=== PATIENT | female | born 1945 | race Caucasian/White ===

== ENCOUNTER 2017-10-30 06:00 | Inpatient (IN) | payer MEDICARE, OTHER ==
[2017-10-30] VITALS (65 sets, daily range): BP systolic 93–122; BP diastolic 61–79
[~2017-10-30] VITALS: Ht 160 cm; Wt 49.9 kg
[~2017-10-30 06:00] MED LIST: ALBUTEROL2.5 MG/0.5 INH; ALBUTEROL2.5 MG/3 M NEB; ASPIRIN EC81 MG PO; AZITHROMYCIN250 MG PO; COMBIVENT RESPIM4 GM IH; COZAAR25 MG PO; FUROSEMIDE20 MG PO; FUROSEMIDE40 MG PO; IPRATROPIU0.2 MG/1 M NEB; LASIX40 MG PO; LISINOPRIL10 MG PO; LISINOPRIL20 MG PO; NICODERM CQ1 EAC2 TOP; POTASSIUM CHLO20 ME1 PO; PREDNISONE20 MG PO; PROTONIX40 MG/ML PO; SPIRIVA18 MCG INH; VERAMYST10 GM
[2017-10-30] MEDS ORDERED: ETOMIDATE 2 MG/ML 10 ML INJ IV STA (06:10)
[2017-10-30] MEDS ORDERED: SUCCINYLCHOLINE 200 MG/10 ML SYR IV STA (06:10)
[2017-10-30] MEDS ORDERED: ALBUTEROL SULF 0.083% NEB SOLN 3 ML NEB NEB STA (06:10)
[2017-10-30] MEDS ORDERED: ASPIRIN 81 MG CHEW TAB PO ONE ×2 (06:15→07:00)
[2017-10-30] MEDS ORDERED: IPRATROPIUM BROMIDE 0.02% 2.5 ML NEB NEB ONE (06:15)
[2017-10-30] MEDS: PROPOFOL IV EMULSION 10MG/ML 100 ML IV PRN ×2 (06:30→22:39)
[2017-10-30 06:33] LABS: BASOPHILS # (AUTO) 0.1 (0.0-0.1); BASOPHILS % 0.4 % (0.0-1.0); EOSINOPHILS # (AUTO) 0.1 (0.0-0.4); EOSINOPHILS % 0.9 % (0.0-6.0); HEMOGLOBIN 13.5 g/dL (12.0-16.0); LYMPHOCYTES # (AUTO) 6.2 (1.0-3.2); LYMPHOCYTES % 49.1 % (18.0-39.1); MEAN CORPUSCULAR HGB CONC 31.4 g/dL (31-35); MEAN CORPUSCULAR VOLUME 98.6 fL (81-99); MONOCYTES # (AUTO) 0.8 (0.2-0.8); MONOCYTES % 5.9 % (4.4-11.3); NEUTROPHILS # (AUTO) 5.5 (2.1-6.9); NEUTROPHILS % 43.1 % (38.7-80.0); PLATELET COUNT 234 x10e3/uL (140-360); RED BLOOD COUNT 4.36 x10e6/uL (3.6-5.1); RED CELL DISTRIBUTION WIDTH 14.5 % (11.7-14.4)
--- NOTE | 2017-10-30 06:41 | Diagnostic Imaging Report ---
CHEST SINGLE (PORTABLE), 10/30/2017 6:10 AM Clinical history: Shortness of breath status post intubation Technique: CHEST SINGLE (PORTABLE) Comparison: 01/21/2017 Findings: See Impression Impression: 1. ET tube about 5 cm above the pepe. 2. Stable cardiomediastinal silhouette with tortuous and/or ectatic thoracic aorta 3. Faint right upper lung opacity could reflect early infection. Attention on follow-up. 4. Stable elevated left hemidiaphragm. No significant effusion or pneumothorax. Signed by: Dr Maritza Wagoner MD on 10/30/2017 6:37 AM
[2017-10-30] MEDS ORDERED: ROCURONIUM BROMIDE 10 MG/ML 5ML VIAL IV ONE (06:45)
[2017-10-30] MEDS ORDERED: SODIUM CHLORIDE 0.9% 1000ML 1,000 ML IV SCH ×2 (06:45→06:48)
[2017-10-30 06:53] LABS: ALBUMIN 3.4 g/dL (3.5-5.0); ALBUMIN/GLOBULIN RATIO 1.1 (0.8-2.0); ANION GAP 17.1 mmol/L (8-16); CALCIUM 8.8 mg/dL (8.4-10.2); CREATININE, SERUM 1.62 mg/dL (0.57-1.11)
[2017-10-30 06:55] LABS: POTASSIUM 5.1 mmol/L (3.5-5.1)
[2017-10-30 06:56] LABS: CLARITY,URINE CLEAR (CLEAR); COLOR,URINE YELLOW (YELLOW)
[2017-10-30 06:58] LABS: LEUKOCYTE ESTERASE ,URINE NEGATIVE (NEGATIVE); NITRITE,URINE NEGATIVE (NEGATIVE); PROTEIN,URINE DIPSTICK TRACE (NEGATIVE)
[2017-10-30 06:59] LABS: BILIRUBIN,URINE NEGATIVE (NEGATIVE); EPITHELIAL CELLS,URINE RARE /LPF; KETONES,URINE NEGATIVE (NEGATIVE); TRANSITIONAL EPI CELLS,URINE RARE; URINE UROBILINOGEN 0.2 mg/dL (0.2 - 1); WBC,URINE (MAN) 0-5 /HPF (0-5)
[2017-10-30] MEDS ORDERED: INSULIN REGULAR, HUMAN 100 UNIT/1 ML 3ML VIAL SQ ONE (07:00)
[2017-10-30] MEDS ORDERED: VANCOMYCIN HCL 1GM/NS 250 ML BAG IV SCH (07:00)
[2017-10-30] MEDS ORDERED: ACETAMINOPHEN 1000 MG/100 ML IV PRN (07:00)
[2017-10-30] MEDS ORDERED: AZITHROMYCIN 500MG/SOD CHL 0.9% 250ML BAG IV SCH (07:00)
[2017-10-30] MEDS ORDERED: CEFTRIAXONE SOD 1 GM VIAL IV SCH (07:00)
[2017-10-30] MEDS ORDERED: SODIUM CHLORIDE 0.9% 1000ML 1,000 ML IV ONE (07:04)
[2017-10-30] MEDS ORDERED: DEXTROSE 50% SYRINGE 50 ML IV PRN (07:15)
[2017-10-30 07:18] LABS: B-TYPE NATRIURETIC PEPTIDE2 1233.1 pg/mL (0-100)
--- OUTSIDE RECORDS SUMMARY | 2017-10-30 07:22 | XMS REPORT ---
[facility] Address Unknown Phone Unavailable Care Team Providers Care Fitness Services Manager Name Role Phone ELODIA MORAES Unavailable Unavailable Problems This patient has no known problems. Allergies, Adverse Reactions, Alerts This patient has no known allergies or adverse reactions. Medications This patient has no known medications. Results Test Description Test Time Test Comments Text Results Atomic Results Result Comments CHEST SINGLE (PORTABLE) [place] [id number] Patient Name: CATHERINE BOYD MR #: [id number] : 1945 Age/Sex: 72/F Req #: [id number] Adm Physician: Ordered by: ELODIA MORAES MD Report #: [id number] Location: ER Room/Bed: ___ Procedure: [id number] DX/CHEST SINGLE (PORTABLE) Exam Date: Exam Time: REPORT STATUS: Signed CHEST SINGLE ( PORTABLE), 10/30/2017 6:10 AM Clinical history: Shortness of breath status post intubation Technique: CHEST SINGLE (PORTABLE) Comparison: 01/21/2017 Findings: See Impression Impression: 1. ET tube about 5 cm above the pepe. 2. Stable cardiomediastinal silhouette with tortuous and/or ectatic thoracic aorta 3. Faint right upper lung opacity could reflect early infection. Attention on follow-up. 4. Stable elevated left hemidiaphragm. No significant effusion or pneumothorax. Signed by: Dr Ricarda Wagoner MD on 10/30/2017 6:37 AM Dictated By: RICARDA WAGONER MD 6 Transcribed By: OSCAR on 10/30/17636 COPY TO: ELODIA MORAES MD
[2017-10-30] MEDS: CEFTRIAXONE SOD 1 GM VIAL IV SCH (07:25)
[2017-10-30 07:27] LABS: ABG PCO2 51 mmHg (41-51); ABG PH 7.35 (7.31-7.41); ABG PO2 594 mmHg (80-105)
[2017-10-30 07:28] LABS: ABG HCO3 29 mmol/L (23-28)
[2017-10-30] MEDS: INSULIN REGULAR, HUMAN 100 UNIT/1 ML 3ML VIAL SQ SCH ×4 (07:30→20:31)
[2017-10-30] MEDS: AZITHROMYCIN 500MG/NS 250 ML 250 ML IV SCH (07:33)
[2017-10-30] MEDS ORDERED: MIDAZOLAM HCL 2 MG/2 ML VIAL ONE (07:34)
[2017-10-30] MEDS: VANCOMYCIN 1GM/NS 250 ML 250 ML IV SCH (07:50)
[2017-10-30] MEDS ORDERED: MIDAZOLAM HCL 2 MG/2 ML VIAL IV ONE (08:15)
[2017-10-30 08:19] LABS: ANISOCYTOSIS SLIGHT; LYMPHOCYTES % (MANUAL) 50 % (19-48); MONOCYTES % (MANUAL) 3 % (3.4-9.0); NEUTROPHILS % (MANUAL) 47 % (40-74); PLATELET ESTIMATE ADEQUATE; PLATELET MORPHOLOGY COMMENT NORMAL; RBC MORPHOLOGY COMMENT NORMAL
[2017-10-30 09:16] LABS: ABG PCO2 40 mmHg (41-51); ABG PO2 164 mmHg (80-105)
[2017-10-30 09:17] LABS: ABG HCO3 25 mmol/L (23-28)
[2017-10-30] MEDS: ALBUTEROL SULF 0.083% NEB SOLN 3 ML NEB NEB SCH ×4 (11:00→18:53)
[2017-10-30] MEDS ORDERED: METHYLPREDNISOLONE SOD SUCC 40 MG/ML VIAL IV SCH (12:00)
[2017-10-30] MEDS: IPRATROPIUM BROMIDE 0.02% 2.5 ML NEB NEB SCH ×3 (12:01→18:53)
[2017-10-30] MEDS ORDERED: FUROSEMIDE INJ 10 MG/ML 4 ML VIAL IV ONE (12:15)
--- NOTE | 2017-10-30 13:08 | Consultation ---
DATE OF CONSULTATION: October 30, 2017 PULMONARY/CRITICAL CARE CONSULTATION REFERRING PHYSICIAN: Dr. Anthony. CHIEF COMPLAINT: Respiratory failure and cardiomyopathy. HISTORY OF PRESENT ILLNESS: The patient is a 72-year-old woman. She has a history of COPD for about 10 years. She also has a history of cardiomyopathy and congestive heart failure. Her last echo done at [facility] in 2017 showed an ejection fraction of only 10%. She has been on Lasix at home as well as blood pressure medication. The patient also has oxygen at home as well as a nebulizer. Over the last several days, she has not been taking her Lasix. She has had more trouble breathing. She has had more cough. She did not have chest pain or fever. She came to the emergency department and had a BNP of 1600. She was intubated and started on Solu-Medrol along with antibiotics. She is now on the ventilator in the intensive care unit. PAST MEDICAL HISTORY 1. Cardiomyopathy with severe congestive heart failure. 2. COPD. PAST SURGICAL HISTORY: Status post endovascular aortic aneurysm repair. FAMILY HISTORY: Noncontributory. SOCIAL HISTORY: The patient lives in [place]. Her daughter takes care of her at home. She quit smoking. She is not a drinker. REVIEW OF SYSTEMS: There is no fever. Patient has no headache. She is not complaining of neck pain. There is no chest pain. She did have more difficulty breathing and some congestion and cough. She is not having any abdominal pain. She did have some leg swelling on the left side. PHYSICAL EXAMINATION VITAL SIGNS: The patient is afebrile. The vital signs are stable. HEENT: No facial swelling or erythema. Nasal mucosa is normal. The oropharynx is normal. LYMPHATIC: No submandibular, cervical or supraclavicular adenopathy. NECK: No JVD or thyromegaly. There is no nuchal rigidity. CARDIAC: Regular rate and rhythm with normal S1 and S2. There are no murmurs or rubs. LUNGS: Auscultation of the lungs reveals rhonchus breath sounds bilaterally. There is no wheezing. ABDOMEN: Soft and nontender. There is no rebound or guarding. EXTREMITIES: Shows 1+ edema on the left side. IMPRESSION 1. Dxbtr-nj-huvsxwl respiratory failure. 2. Lwexq-dc-xkjvszh systolic congestive heart failure. 3. Chronic obstructive pulmonary disease. 4. Acute kidney injury. PLAN 1. The patient will receive IV Lasix. 2. She is on Solu-Medrol along with bronchodilators. 3. The patient has been pancultured and will be continued on antibiotics. 4. She will remain on assist control for now, and we will attempt a spontaneous breathing trial each morning. Case was discussed at length with the son and the daughter. Case was also discussed with the nursing staff. Job#: [id number]
[2017-10-30 15:23] LABS: CREATINE KINASE MB 3.7 ng/mL (0-5.0)
[2017-10-30] MEDS ORDERED: ENOXAPARIN SOD INJ 40 MG/0.4 ML SYR SC SCH (17:15)
[2017-10-30] MEDS: ENOXAPARIN 30 MG/0.3 ML SYR SC SCH (18:00)
--- NOTE | 2017-10-30 20:13 | History and Physical ---
CHIEF COMPLAINT: Respiratory failure. HISTORY OF PRESENT ILLNESS: Ms. Porras is a 72-year-old lady who presented to the ER in respiratory extremis and was intubated in the ER for hypoxic acute respiratory failure. REVIEW OF SYSTEMS: Unobtainable as the patient is intubated and sedated. PAST MEDICAL HISTORY: Significant for hypertension and congestive heart failure reportedly with an ejection fraction of 10% to 15%, COPD and chronic kidney disease stage 3. She denies any history of diabetes. She also has a history of cholecystectomy and abdominal aortic aneurysm repair. MEDICATIONS: Nebulized albuterol ipratropium on a regular basis. Protonix 40 mg twice daily. NicoDerm patch. Potassium chloride 20 mEq daily. Lasix 40 mg twice daily. Losartan 12.5 mg daily. ALLERGIES: SHE HAS A STATED ALLERGY TO IV DYE CONTRAST AND ALSO A STATED ALLERGY TO MORPHINE AND IODINE. FAMILY HISTORY: Significant for hypertension. SOCIAL HISTORY: The patient is . Eritrean is her primary language. She is a current smoker. She drinks occasionally. Does use illegal drugs. Had been generally independently active. PHYSICAL EXAM: PSYCHIATRIC: Unobtainable as the patient is intubated and sedated. Generally she has a normal body habitus, somewhat underweight. VITAL SIGNS: Initial blood pressure 109/70, currently 112/71. Initial pulse 132, currently 99. Initial respiratory rate 32, currently 18. O2 sat 99% on a ventilator. Temperature 98.5, original temp 98.7. HEENT: Head is atraumatic. Eyes are anicteric with clear conjunctivae. Ears and nares are without erythema or discharge. She is orally intubated. NECK: Is supple with no mass or thyromegaly. LYMPHATIC SYSTEM: She has no palpable cervical, axially or inguinal adenopathy. CARDIOVASCULAR: Heart has a regular rate and rhythm without murmur or extra heart sounds. She has no carotid bruit. No peripheral edema. She has weak dorsal pedal pulses. RESPIRATORY: Lungs revealed diminished breath sounds, some prolonged expiration, some end expiratory wheezing. She is sedated and ventilated. GASTROINTESTINAL: Abdomen is soft without organomegaly, masses or tenderness. She has small has normal bowel sounds present. CUTANEOUS: Her skin is warm and dry to touch with no rash or skin breakdown. MUSCULOSKELETAL: Joints are normal in alignment without erythema or swelling. She has no calf tenderness. NEUROLOGIC: Appears to be nonfocal. The patient is arousable and moving all extremities when aroused. Not following commands as she is sedated. DIAGNOSTIC STUDIES: Chest x-ray shows patient to be reintubated. She has a right upper lobe opacity. Her UA is clear. ABG initially pH of 7.35, pCO2 51, PO2 594, after intubation. Second blood gas after adjusting vent settings a pH of 7.40, pCO2 40, PO2 164, which is good. Her lactic acid is 30.2. Troponin 0.0 17 and 0.439. BNP 1233.1. Chemistry shows normal electrolytes. CO2 21. Creatinine 1.62. BUN 20 for a GFR of 30. Her baseline is around 35 to 40. Calcium 8.8. Glucose is 357. She has no history of diabetes. Her transaminases are markedly elevated. AST 280, ALT 216. Total bilirubin and alk phos are normal. CBC shows a white count 12.7 with 43% neutrophils, 50% lymphocytes. Hemoglobin 13.3, hematocrit 43.0 and platelet count 234,000. IMPRESSION AND PLAN 1. Acute respiratory failure. The patient has been intubated and is in the ICU on a ventilator with pulmonary managing vent settings and potential weaning. 2. Severe sepsis. The patient received an IV fluid bolus in the ER and has not required pressors. She has been started on IV vancomycin, Zithromax, Rocephin empirically for pneumonia with sepsis and aggressive nebulizer treatments. 3. Right upper lobe pneumonia with sepsis. As noted the patient has been started on IV vancomycin, Zithromax, Rocephin and ____ nebulizer treatments. 4. Acute exacerbation of chronic obstructive pulmonary disease. The patient is getting aggressive nebulizer treatments and IV Solu-Medrol 40 q.6 h. 5. Hyperglycemia in the absence of the diagnosis of diabetes. Most likely steroid-induced. Will use sliding scale insulin and possibly Levemir as needed to control blood sugars while on steroids. 6. Hypertension complicated by chronic systolic heart failure and chronic kidney disease stage 3. Currently, the patient's blood pressure is low. Will hold her losartan for now. Will continue to monitor her blood pressure. 7. For prophylaxis the patient will be on Lovenox for DVT prophylaxis and Pepcid for GI prophylaxis. Job#: [id number]
[2017-10-30] MEDS: FAMOTIDINE 20 MG/2 ML VIAL IV SCH (20:42)
[2017-10-30] MEDS: METHYLPREDNISOLONE SOD SUCC 40 MG/ML VIAL IV SCH (20:42)
[2017-10-30 22:59] LABS: CREATINE KINASE MB 2.5 ng/mL (0-5.0)
[2017-10-31] VITALS (96 sets, daily range): BP systolic 85–122; BP diastolic 53–80
[2017-10-31] MEDS: ALBUTEROL SULF 0.083% NEB SOLN 3 ML NEB NEB SCH ×4 (02:45→19:45)
[2017-10-31] MEDS: IPRATROPIUM BROMIDE 0.02% 2.5 ML NEB NEB SCH ×5 (02:45→19:45)
[2017-10-31 06:09] LABS: HEMATOCRIT 38.5 % (34.2-44.1); HEMOGLOBIN 13.2 g/dL (12.0-16.0); MEAN CORPUSCULAR HEMOGLOBIN 31.3 pg (28-32); MEAN CORPUSCULAR HGB CONC 34.3 g/dL (31-35); MEAN CORPUSCULAR VOLUME 91.2 fL (81-99); RED BLOOD COUNT 4.22 x10e6/uL (3.6-5.1); RED CELL DISTRIBUTION WIDTH 14.6 % (11.7-14.4)
[2017-10-31 06:10] LABS: BASOPHILS % 0.1 % (0.0-1.0); MONOCYTES # (AUTO) 0.6 (0.2-0.8); MONOCYTES % 5.9 % (4.4-11.3); NEUTROPHILS # (AUTO) 9.2 (2.1-6.9); NEUTROPHILS % 84.5 % (38.7-80.0); PLATELET COUNT 178 x10e3/uL (140-360)
--- NOTE | 2017-10-31 06:25 | Diagnostic Imaging Report ---
CHEST SINGLE (PORTABLE), 10/31/2017 6:00 AM Technique: CHEST SINGLE (PORTABLE) Comparison: Previous day Clinical history: Respiratory failure Findings: See Impression Impression: 1. Lines/Tubes: ET tube about 4 cm above the pepe. 2. Stable cardiomediastinal silhouette with tortuous and/or ectatic thoracic aorta. 3. Rotation limits evaluation. Suggestion of persistent asymmetric right lung opacity. Attention on follow-up. Signed by: Dr Maritza Wagoner MD on 10/31/2017 6:22 AM
[2017-10-31 06:37] LABS: ALANINE AMINOTRANSFERASE 157 IU/L (0-55); ALBUMIN 3.4 g/dL (3.5-5.0); ALBUMIN/GLOBULIN RATIO 1.3 (0.8-2.0); ALKALINE PHOSPHATASE 136 IU/L (40-150); ANION GAP 15.1 mmol/L (8-16); BLOOD UREA NITROGEN 22 mg/dL (7-26); BUN/CREATININE RATIO 27 (6-25); CALCIUM 8.9 mg/dL (8.4-10.2); CARBON DIOXIDE 22 mmol/L (22-29); CHLORIDE 108 mmol/L (98-107); CREATININE, SERUM 0.83 mg/dL (0.57-1.11); EST GLOMERULAR FILTRATION RATE > 60 ML/MIN (60-); GLUCOSE 152 mg/dL (74-118); MAGNESIUM 2.1 MG/DL (1.3-2.1); POTASSIUM 4.1 mmol/L (3.5-5.1); SODIUM 141 mmol/L (136-145)
[2017-10-31] MEDS: INSULIN REGULAR, HUMAN 100 UNIT/1 ML 3ML VIAL SQ SCH ×4 (07:30→21:00)
[2017-10-31 08:25] LABS: THYROID STIMULATING HORMONE 1.589 uIU/mL (0.350-4.940)
[2017-10-31] MEDS ORDERED: FUROSEMIDE INJ 10 MG/ML 4 ML VIAL ONE (08:33)
[2017-10-31] MEDS: FAMOTIDINE 20 MG/2 ML VIAL IV SCH ×2 (08:51→21:00)
[2017-10-31] MEDS: METHYLPREDNISOLONE SOD SUCC 40 MG/ML VIAL IV SCH ×2 (08:51→21:00)
[2017-10-31] MEDS: FUROSEMIDE INJ 10 MG/ML 4 ML VIAL IV SCH ×2 (08:51→21:00)
[2017-10-31] MEDS: AZITHROMYCIN 500MG/NS 250 ML 250 ML IV SCH (08:51)
[2017-10-31] MEDS: CEFTRIAXONE SOD 1 GM VIAL IV SCH (08:51)
[2017-10-31] MEDS: VANCOMYCIN 1GM/NS 250 ML 250 ML IV SCH (08:51)
[2017-10-31 09:28] LABS: ABG HCO3 25 mmol/L (23-28); ABG PCO2 46 mmHg (41-51); ABG PH 7.35 (7.31-7.41); ABG PO2 130 mmHg (80-105)
--- NOTE | 2017-10-31 10:16 | Consultation ---
DATE OF CONSULTATION: October 31, 2017 CARDIOLOGY CONSULTATION REASON FOR CONSULTATION: CHF. CHIEF COMPLAINT: Shortness of breath. HPI: This is a 72-year-old female with history of advanced congestive heart failure, smoker, COPD, also status post EVAR in 1998. The patient presented to [facility] ER with apparently complaint of shortness of breath for several days. Of note, the patient stopped her Lasix therapy for several days, according to documentation. The patient was subsequently intubated and sent to the ICU for closer observation. Cardiology was consulted secondary to her BNP greater than 1500. The patient was seen in ICU, currently intubated and unable to give any information. PAST MEDICAL HISTORY 1. Advanced chronic systolic heart failure. 2. COPD. 3. Smoker. 4. [place]AR [address] Vargas. SURGICAL HISTORY: Cholecystectomy. FAMILY HISTORY: Mother at age 52, apparently had diabetes and heart disease. Father at 55. Apparently he was healthy. One sister is with diabetes. One sister is alive with diabetes and peripheral vascular disease. Another sister is alive with cancer, unknown type. One brother alive with history of CAD. SOCIAL HISTORY: She is a retired high school social studies tutor. She is . Current smoker. Denies any alcohol use from history. ALLERGIES: IODINE. REVIEW OF SYSTEMS: Unable to obtain. HOME MEDICATIONS: Apparently, she was on: 1. Losartan 12.5 mg p.o. daily. 2. Protonix 40 mg daily. 3. Lasix 40 mg b.i.d., however, that was not taken for several days. 4. Potassium chloride 20 mEq. PHYSICAL EXAMINATION VITAL SIGNS: Height 63 inches, weight 116 pounds. Currently, pulse 89, temperature 99.7, respiratory rate 18, blood pressure 106/62, pulse ox 100% on ventilator. GENERAL: She is acutely ill, intubated. HEENT: Pupils are equal and reactive. Trachea is midline. Oral mucosa is pink. No carotid bruit noted. SKIN: No rashes or bruises noted. HEART: Regular rate and rhythm. PMI at 5th intercostal space. LUNGS: Bilateral crackles throughout. Orally intubated. ABDOMEN: Soft, nontender and nondistended. : Ross to bedside. MUSCULOSKELETAL: Weakness throughout. VASCULAR: There are +2 bilateral radial pulses and +1 PT and DP pulses. LABS: White count 12, hemoglobin 13.4, hematocrit 43, platelets 234. Sodium 141, potassium 4.1, chloride 108, bicarb 22, BUN 22, creatinine 0.83, glucose 152. BNP 1623. Chest x-ray showing faint right upper lobe opacity. EKG: Sinus tachycardia with ST depressions in V4 to V6. ASSESSMENT 1. Wzbwj-go-eamombo congestive heart failure. 2. Respiratory failure. 3. Chronic obstructive pulmonary disease. 4. Possible pneumonia, right upper lobe. 5. Acute kidney injury, resolving. PLAN 1. The patient presents with shortness of breath, also hlwut-nc-pvbgjuo systolic heart failure secondary to patient noncompliance, also appears to be with right upper lobe opacities. The patient was intubated in the ER. 2. For now, we will go ahead and give the patient Lasix. 3. Vent management as per pulmonary service. 4. Most recent echo on October 04, 2016, showing EF of less than 20%. 5. Continue to support the patient and adjust cardiac meds as indicated. Thank you very much for this consult. Dictated by: Catalino Delaney NP Job#: [id number]
--- NOTE | 2017-10-31 11:38 | Progress Note ---
DATE: October 31, 2017 TIME OF SERVICE: 7:10 a.m. OVERNIGHT: No events. Patient remains intubated. REVIEW OF SYSTEMS: Unobtainable. VITAL SIGNS: Reviewed. OBJECTIVE GENERAL APPEARANCE: A tired-appearing woman resting in bed. HEENT: Atraumatic. She has an ET tube in place. CARDIOVASCULAR: Normal S1 and S2. LUNGS: Reduced breath sounds, mildly coarse. ABDOMEN: Soft, nontender, nondistended. : She has a Ross in place. EXTREMITIES: SCDs. SKIN: Dry. PSYCHIATRIC: Unable to assess. NEUROLOGIC: Sedated. LABS: Reviewed. MEDICATIONS: Reviewed. ASSESSMENT AND PLAN: A 72-year-old woman. 1. Acute respiratory failure. 2. Severe sepsis. 3. Acute exacerbation of chronic obstructive pulmonary disease. 4. Elevated B-type natriuretic peptide. 5. Right lung pneumonia. PLAN 1. Continue vent. Defer to pulmonary services. 2. Continue vancomycin, azithromycin and ceftriaxone. 3. Continue steroid therapy. 4. Continue Lovenox for DVT prophylaxis. 5. I's and O's are 593/2100. 6. Continue supportive care. Critical care time more than 35 minutes. Job#: [id number]
[2017-10-31] MEDS: PROPOFOL IV EMULSION 10MG/ML 100 ML IV PRN ×2 (13:21→20:22)
[2017-10-31] MEDS: ENOXAPARIN 30 MG/0.3 ML SYR SC SCH (17:00)
[2017-11-01] VITALS (63 sets, daily range): BP systolic 80–126; BP diastolic 53–93
[2017-11-01] MEDS: ALBUTEROL SULF 0.083% NEB SOLN 3 ML NEB NEB SCH ×4 (02:30→19:15)
[2017-11-01] MEDS: IPRATROPIUM BROMIDE 0.02% 2.5 ML NEB NEB SCH ×4 (02:30→19:15)
[2017-11-01] MEDS: PROPOFOL IV EMULSION 10MG/ML 100 ML IV PRN (02:53)
[2017-11-01 06:21] LABS: BASOPHILS % 0.1 % (0.0-1.0); HEMATOCRIT 41.1 % (34.2-44.1); HEMOGLOBIN 13.7 g/dL (12.0-16.0); LYMPHOCYTES % 8.6 % (18.0-39.1); MEAN CORPUSCULAR HEMOGLOBIN 31.2 pg (28-32); MEAN CORPUSCULAR HGB CONC 33.3 g/dL (31-35); MEAN CORPUSCULAR VOLUME 93.6 fL (81-99); MONOCYTES # (AUTO) 0.6 (0.2-0.8); MONOCYTES % 4.7 % (4.4-11.3); NEUTROPHILS # (AUTO) 10.5 (2.1-6.9); NEUTROPHILS % 86.3 % (38.7-80.0); PLATELET COUNT 208 x10e3/uL (140-360); RED BLOOD COUNT 4.39 x10e6/uL (3.6-5.1); RED CELL DISTRIBUTION WIDTH 14.9 % (11.7-14.4)
--- NOTE | 2017-11-01 06:23 | Diagnostic Imaging Report ---
CHEST SINGLE (PORTABLE), 11/01/2017 6:00 AM Technique: CHEST SINGLE (PORTABLE) Comparison: Previous day Clinical history: Respiratory failure Findings: See Impression Impression: 1. Lines/Tubes: Stable ET tube about 4 cm above the pepe. 2. Stable cardiomediastinal silhouette with tortuous and/or ectatic thoracic aorta. 3. Persistent asymmetric right lung opacity concerning for underlying aspiration/infection Signed by: Dr Maritza Wagoner MD on 11/01/2017 6:19 AM
[2017-11-01 06:59] LABS: ALANINE AMINOTRANSFERASE 110 IU/L (0-55); ALBUMIN 3.3 g/dL (3.5-5.0); ALKALINE PHOSPHATASE 115 IU/L (40-150); ANION GAP 14.9 mmol/L (8-16); BLOOD UREA NITROGEN 27 mg/dL (7-26); BUN/CREATININE RATIO 32 (6-25); CARBON DIOXIDE 25 mmol/L (22-29); CHLORIDE 107 mmol/L (98-107); CREATININE, SERUM 0.84 mg/dL (0.57-1.11); EST GLOMERULAR FILTRATION RATE > 60 ML/MIN (60-); GLUCOSE 163 mg/dL (74-118); POTASSIUM 3.9 mmol/L (3.5-5.1); SODIUM 143 mmol/L (136-145)
[2017-11-01] MEDS: INSULIN REGULAR, HUMAN 100 UNIT/1 ML 3ML VIAL SQ SCH ×4 (07:30→20:27)
[2017-11-01] MEDS: FAMOTIDINE 20 MG/2 ML VIAL IV SCH (08:30)
[2017-11-01] MEDS: VANCOMYCIN 1GM/NS 250 ML 250 ML IV SCH (08:30)
[2017-11-01] MEDS: FUROSEMIDE INJ 10 MG/ML 4 ML VIAL IV SCH ×2 (08:30→21:42)
[2017-11-01] MEDS: CEFTRIAXONE SOD 1 GM VIAL IV SCH (08:31)
[2017-11-01] MEDS: METHYLPREDNISOLONE SOD SUCC 40 MG/ML VIAL IV SCH ×2 (08:34→21:42)
[2017-11-01 11:45] LABS: ABG HCO3 29 mmol/L (23-28); ABG PCO2 43 mmHg (41-51); ABG PH 7.43 (7.31-7.41); ABG PO2 120 mmHg (80-105)
[2017-11-01] MEDS: AZITHROMYCIN 500MG/NS 250 ML 250 ML IV SCH (13:31)
[2017-11-01] MEDS: MEROPENEM 1 GM VIAL IV SCH ×2 (14:00→21:42)
[2017-11-01] MEDS: ENOXAPARIN 30 MG/0.3 ML SYR SC SCH (16:57)
--- NOTE | 2017-11-01 18:04 | Progress Note ---
DATE: November 01, 2017 PULMONARY/CRITICAL CARE PROGRESS NOTE The patient was tried on pressor support and CPAP this morning. She did well for 3 or 4 hours with a respiratory rate of 15 to 20 and adequate tidal volumes. She did have an episode of tachycardia and required being put back on the ventilator briefly but is now back on pressor support and CPAP. The sputum culture is growing out pseudomonas. Discussed the case with the family. They state the patient did not want heroic measures. She does not want chest compressions or mechanical ventilation. PHYSICAL EXAMINATION VITALS: The patient is afebrile. The blood pressure is 111/70, and the pulse is 104. The respiratory rate is 18 on pressor support and CPAP. The tidal volumes are 250 to 300 mL. HEENT: No facial swelling or erythema. The nasal mucosa is normal. The oropharynx is normal. LYMPHATIC: Examination shows no submandibular, cervical or supraclavicular adenopathy. CARDIAC: Regular rate and rhythm with normal S1 and S2. There are no murmurs or rubs. LUNGS: Auscultation of the lungs reveals rhonchorous breath sounds bilaterally. There is no wheezing. ABDOMEN: Soft and nontender. There is no rebound or guarding. EXTREMITIES: No leg edema or calf tenderness. There is no cyanosis or clubbing. SKIN: No rash. NEUROLOGIC: No focal abnormality. LABORATORY DATA: The white blood cell count is 12, hemoglobin 13.7, platelet count 208. The NLG-sr-gsyfuexuzv ratio is normal. The other electrolytes are within normal limits. The chest x-ray shows persistent opacity in the right lung field consistent with pneumonia. IMPRESSION 1. Zjszq-rm-pgokyfd respiratory failure. 2. Pseudomonas pneumonia with severe sepsis. 3. Njykp-xf-pavqsif congestive heart failure. 4. Severe systolic cardiomyopathy with an ejection fraction of 10% to 20%. PLAN 1. Patient will be extubated. She will use BiPAP as needed. 2. Continue diuresis and current cardiac regimen. 3. The patient's antibiotics have been switched to Merrem to cover for pseudomonas. 4. The overall prognosis remains poor. The family is aware of this. I discussed the case with the nursing staff, the family and Dr. Joel. Greater than 35 minutes in direct critical care time. Job#: [id number]
[2017-11-01] MEDS ORDERED: MEROPENEM 1GRAM 1 GM in SODIUM CHLORIDE 0.9% 100 ML 100 ML IV SCH (21:00)
[2017-11-01] MEDS ORDERED: TOBRAMYCIN 40 MG/ML 2ML VIAL NEB SCH (21:00)
[2017-11-02] VITALS (28 sets, daily range): BP systolic 89–129; BP diastolic 47–101
[2017-11-02] MEDS: ALBUTEROL SULF 0.083% NEB SOLN 3 ML NEB NEB SCH ×4 (02:20→19:25)
[2017-11-02] MEDS: IPRATROPIUM BROMIDE 0.02% 2.5 ML NEB NEB SCH ×4 (02:20→19:25)
[2017-11-02 05:41] LABS: BASOPHILS % 0.1 % (0.0-1.0); HEMATOCRIT 42.1 % (34.2-44.1); HEMOGLOBIN 14.1 g/dL (12.0-16.0); LYMPHOCYTES % 8.1 % (18.0-39.1); MEAN CORPUSCULAR HEMOGLOBIN 31.2 pg (28-32); MEAN CORPUSCULAR HGB CONC 33.5 g/dL (31-35); MEAN CORPUSCULAR VOLUME 93.1 fL (81-99); MONOCYTES # (AUTO) 0.6 (0.2-0.8); MONOCYTES % 4.6 % (4.4-11.3); NEUTROPHILS # (AUTO) 10.4 (2.1-6.9); NEUTROPHILS % 86.9 % (38.7-80.0); PLATELET COUNT 210 x10e3/uL (140-360); RED BLOOD COUNT 4.52 x10e6/uL (3.6-5.1); RED CELL DISTRIBUTION WIDTH 14.6 % (11.7-14.4)
[2017-11-02 06:05] LABS: ALANINE AMINOTRANSFERASE 81 IU/L (0-55); ALBUMIN 3.6 g/dL (3.5-5.0); ALBUMIN/GLOBULIN RATIO 1.1 (0.8-2.0); ALKALINE PHOSPHATASE 104 IU/L (40-150); ANION GAP 15.9 mmol/L (8-16); BLOOD UREA NITROGEN 30 mg/dL (7-26); BUN/CREATININE RATIO 37 (6-25); CALCIUM 9.2 mg/dL (8.4-10.2); CARBON DIOXIDE 27 mmol/L (22-29); CHLORIDE 102 mmol/L (98-107); CREATININE, SERUM 0.82 mg/dL (0.57-1.11); EST GLOMERULAR FILTRATION RATE > 60 ML/MIN (60-); GLUCOSE 217 mg/dL (74-118); POTASSIUM 3.9 mmol/L (3.5-5.1); SODIUM 141 mmol/L (136-145)
--- NOTE | 2017-11-02 06:54 | Diagnostic Imaging Report ---
CHEST SINGLE (PORTABLE), 11/02/2017 6:00 AM Technique: CHEST SINGLE (PORTABLE) Comparison: Previous day Clinical history: Respiratory failure Findings: See Impression Impression: 1. Lines/Tubes: Removal of ET tube. 2. Stable cardiomediastinal silhouette with tortuous and/or ectatic thoracic aorta. 3. Improved opacities from prior. No definite consolidation. Signed by: Dr Maritza Wagoner MD on 11/02/2017 6:51 AM
[2017-11-02] MEDS: TOBRAMYCIN 1.2GM BULK BOTTLE INH SCH ×2 (07:42→19:00)
[2017-11-02] MEDS ORDERED: DIGOXIN INJ 0.25 MG/ML 2 ML AMP ONE (08:10)
[2017-11-02] MEDS: FUROSEMIDE INJ 10 MG/ML 4 ML VIAL IV SCH ×2 (08:35→20:42)
[2017-11-02] MEDS: MEROPENEM 1 GM VIAL IV SCH ×2 (08:35→20:42)
[2017-11-02] MEDS: AZITHROMYCIN 500MG/NS 250 ML 250 ML IV SCH (08:35)
[2017-11-02] MEDS: FAMOTIDINE 20 MG TAB PO SCH ×2 (08:35→16:30)
[2017-11-02] MEDS: METHYLPREDNISOLONE SOD SUCC 40 MG/ML VIAL IV SCH ×2 (08:35→20:42)
[2017-11-02] MEDS: INSULIN REGULAR, HUMAN 100 UNIT/1 ML 3ML VIAL SQ SCH ×4 (08:44→20:38)
[2017-11-02] MEDS ORDERED: DIGOXIN INJ 0.25 MG/ML 2 ML AMP IV ONE (09:00)
[2017-11-02] MEDS: LORAZEPAM 1 MG TAB PO PRN ×2 (11:10→20:41)
[2017-11-02] MEDS: ENOXAPARIN 30 MG/0.3 ML SYR SC SCH (17:00)
[2017-11-02] MEDS ORDERED: ZIPRASIDONE 20 MG VIAL IM PRN ×2 (21:30→23:30)
[2017-11-03] MEDS: ALBUTEROL SULF 0.083% NEB SOLN 3 ML NEB NEB SCH ×2 (00:30→07:30)
[2017-11-03] MEDS: IPRATROPIUM BROMIDE 0.02% 2.5 ML NEB NEB SCH ×2 (00:30→07:30)
[2017-11-03 04:00] VITALS: BP 84/58
[2017-11-03] MEDS: TOBRAMYCIN 1.2GM BULK BOTTLE INH SCH (07:30)
[2017-11-03] MEDS: INSULIN REGULAR, HUMAN 100 UNIT/1 ML 3ML VIAL SQ SCH ×2 (07:59→11:30)
[2017-11-03 08:07] VITALS: BP 96/59
[2017-11-03 08:40] VITALS: BP 109/58
[2017-11-03] MEDS: FAMOTIDINE 20 MG TAB PO SCH (08:40)
[2017-11-03] MEDS: FUROSEMIDE INJ 10 MG/ML 4 ML VIAL IV SCH (08:40)
[2017-11-03] MEDS: METHYLPREDNISOLONE SOD SUCC 40 MG/ML VIAL IV SCH (08:40)
[2017-11-03] MEDS: AZITHROMYCIN 500MG/NS 250 ML 250 ML IV SCH (08:40)
[2017-11-03] MEDS: MEROPENEM 1 GM VIAL IV SCH (08:40)
[2017-11-03 08:48] VITALS: BP 104/58
[2017-11-03 12:14] VITALS: BP 110/66
--- NOTE | 2017-11-04 11:35 | Discharge Summary ---
ADMISSION DIAGNOSES: 1. Acute respiratory failure. 2. Severe sepsis. 3. Right upper lobe pneumonia with sepsis. 4. Acute exacerbation of chronic obstructive pulmonary disease. 5. Hyperglycemia in the absence of the diagnosis of diabetes. 6. Hypertension, complicated by chronic systolic heart failure and chronic kidney disease 3. DISCHARGE DIAGNOSES: 1. Acute respiratory failure. 2. Severe sepsis. 3. Right upper lobe pneumonia with sepsis. 4. Acute exacerbation of chronic obstructive pulmonary disease. 5. Hyperglycemia in the absence of the diagnosis of diabetes. 6. Hypertension, complicated by chronic systolic heart failure and chronic kidney disease 3. HISTORY: Patient has a history of hypertension, CHF with an EF of 10% to 15%, COPD, CKD 3. Surgical history of cholecystectomy and abdominal aortic aneurysm repair. HOSPITAL COURSE: A 72-year-old female presented to the ER in respiratory distress and was intubated in the ER for hypoxic acute respiratory failure. On admission, she was intubated with pulmonary managing vent settings. She was given a bolus due to sepsis and started on Zithromax and Rocephin empirically as well as neb treatments. She was given IV Solu-Medrol and sliding scale insulin for the hyperglycemia, which was likely steroid induced. Blood pressure meds held initially due to her hypotension. Cardiology was consulted, who gave Lasix. Patient was extubated a couple of days later and was put on BiPAP as needed. Antibiotics were switched to Merrem to cover for pseudomonas of the sputum. Blood cultures were negative. Urine culture negative. MRSA nares negative. Chest x-ray showed on admission the ET tube about 5 cm above the pepe, stable cardiomediastinal silhouette, with tortuous and/or ectatic thoracic aorta, faint right upper lung opacity, which could reflect early infection, stable elevated left hemidiaphragm, no significant effusion or pneumothorax. ABG on admission, pH of 7.35, CO2 of 51, pO2 of 594, bicarb of 29, O2 saturation of 100% base excess of 30, FiO2 of 100. Once patient was weaned, she was weaned to nasal cannula, then room air. At time of discharge, she was on room air, a little confused. She required a sitter for fall precautions. After discussing with her family and patient, they decided that hospice was the best case for her. She was sent home with hospice through [facility]. Family aware and waiting at home for the setup. On discharge, patient's WBC was 11.9, hemoglobin of 14, platelet of 210,000. Sodium 141, potassium 3.9, creatinine of 0.82 with a BUN of 30. Vital signs, 104/58, respiratory rate 19, pulse 77, temp 96.8. Creatinine 0.082. Patient stable on room air, sleeping, ready to go home and was very excited when she found out she was going home. She will follow up with primary care as needed. Dictated by Asiya Alarcon NP ANA JENSEN MD Job#: [id number]
== END 2017-11-03 14:09 | disposition hospice, home (50) | DRG 871 ==
LOC: ER 06:00 → ICU 07:13 → MED/SURG2 11-02 23:48
PROVIDERS: ADMIT Internal Medicine; ATTEND Internal Medicine
PROC: 0BH17EZ Insertion of Endotracheal Airway into Trachea, Via Natural or Artificial Opening (ICD-10-PCS; principal; 2017-10-30)
PROC: 5A1945Z Respiratory Ventilation, 24-96 Consecutive Hours (ICD-10-PCS; 2017-10-30)
DX: A41.9 Sepsis, unspecified organism (principal); J15.1 Pneumonia due to Pseudomonas; J96.21 Acute and chronic respiratory failure with hypoxia; N17.9 Acute kidney failure, unspecified; I50.23 Acute on chronic systolic (congestive) heart failure; N18.3 Chronic kidney disease, stage 3 (moderate); Z99.81 Dependence on supplemental oxygen; I13.0 Hypertensive heart and chronic kidney disease with heart failure and stage 1 through stage 4 chronic kidney disease, or unspecified chronic kidney disease; J44.1 Chronic obstructive pulmonary disease with (acute) exacerbation; J44.0 Chronic obstructive pulmonary disease with (acute) lower respiratory infection; R65.20 Severe sepsis without septic shock; I12.9 Hypertensive chronic kidney disease with stage 1 through stage 4 chronic kidney disease, or unspecified chronic kidney disease; Z91.14 Patient's other noncompliance with medication regimen; R73.9 Hyperglycemia, unspecified; Z51.5 Encounter for palliative care; R41.82 Altered mental status, unspecified; F17.200 Nicotine dependence, unspecified, uncomplicated; I49.9 Cardiac arrhythmia, unspecified
CPT/HCPCS: 31500; 36415; 36600; 51700; 71045; 80053; 81001; 82550; 82553; 82805; 82948; 83605; 83735; 83880; 84443; 84484; 85025; 87040; 87070; 87081; 87086; 87186; 87205; 92950; 93005; 93306; 94002; 94003; 94640; 94660; 96360; 99284; J0456; J0696; J1160; J1650; J1940; J2185; J2250; J2920; J3370; J3486; J7030

== ENCOUNTER 2017-11-25 06:09 | Inpatient (IN) | payer MEDICARE, OTHER ==
[~2017-11-25] VITALS: Ht 160 cm; Wt 49.9 kg
--- OUTSIDE RECORDS SUMMARY | 2017-11-25 06:12 | XMS REPORT | Continuity of Care Document ---
Author Author [facility] Organization [facility] Address [address] [place] [address] Phone Unavailable Care Team Providers Care House Calls Nurse Practitioner Name Role Phone HONEY AGUIRRE DO PCP Insurance Providers Guarantor Jada Boyd Address [address] [place] [address] Email [email or web address] [facility] Policy Number [id number] Subscriber's Name Jada Boyd Relationship 18 Self / Same As Patient Effective Date 17 [facility] Policy Number [id number] Subscriber's Name Jada Boyd Relationship 18 Self / Same As Patient Effective Date 17 Advance Directives Directive Response Recorded Date/Time Does the patient have an advance directive? No 10/30/17 9:20am If yes, is advance directive on file with [facility]? No 10/30/17 9:20am If not on file with [facility] will patient provide a copy? No 10/30/17 9:20am Do you have a Directive to Physician? No 10/30/17 7:16am Do you have a Medical Power of Garnishment Specialist? No 10/30/17 7:16am Do you have an out of hospital Do Not Resuscitate Order? No 10/30/17 7:16am Do you have any special needs we should be aware of? No 10/30/17 7:16am Do you have a support person here with you today? Yes 10/30/17 7:16am Did patient receive Notice of Privacy Practices? Yes 10/30/17 7:16am Did patient receive patient rights and responsibilities? Yes 10/30/17 7:16am Problems Medical Problem Onset Date Status Bronchitis 01/26/2016 Acute CHF (congestive heart failure) 01/26/2016 Acute CHF exacerbation Unknown COPD (chronic obstructive pulmonary disease) Unknown COPD (chronic obstructive pulmonary disease) Unknown COPD exacerbation Unknown Acute COPD exacerbation 05/17/2015 Acute D-dimer, elevated 01/26/2016 Acute Pneumonia 05/17/2015 Acute Pneumonia Unknown Pre-syncope 05/11/2015 Acute Respiratory failure Unknown UTI (urinary tract infection) Unknown Medications Current Home Medications Medication Dose Units Route Directions Days Qty Instructions Start Date Albuterol Sulfate 2.5 Mg/0.5 Ml Vial.neb 1 Dose Inhalation Daily Albuterol Sulfate 2.5 Mg/3 Ml Vial.neb 3 Ml Nebullizer Rt Q6h 30 Days 01/24/17 Furosemide (Lasix) 40 Mg Tablet 40 Mg Oral Twice A Day 30 Days 30 Tab 10/08/16 Ipratropium [place] 0.2 Mg/1 Ml Solution 2.5 Ml Nebullizer Daily Ipratropium [place] 0.2 Mg/1 Ml Solution 2.5 Ml Nebullizer Rt Q4h 30 Days 01/24/17 Ipratropium/Albuterol Sulfate (Combivent Respimat Inhal [place]) 4 Gm Aer.w.adap 4 Gm Inhalation Daily Losartan Potassium (Cozaar) 25 Mg Tablet 12.5 Mg Oral Daily 30 Days 10/08/16 Nicotine (Nicoderm Cq) 1 Each Patch.td24 21 Mg Topically Daily 30 Days 10/08/16 Pantoprazole Sod (Protonix) 40 Mg/Ml Susp 40 Mg Oral Twice A Day 30 Days 10/08/16 Potassium Chloride 20 Meq Tab.er.prt 1 Tab Oral Daily 30 Days 10/08 Past Home Medications Medication Directions Ordered Status Aspirin (Aspirin Ec) 81 Mg Tablet.dr, 81 Mg Oral Daily 04/29/16 Discontinued Azithromycin (Z-Bill) 250 Mg Tablet, 250 Mg Oral Daily Discontinued Fluticasone Furoate (Veramyst) 10 Gm Valencia.susp, 2 [place] Nasal Daily Discontinued Furosemide 40 Mg Tablet, 40 Mg Oral Daily Discontinued Furosemide 40 Mg Tablet, 40 Mg Oral Every 12 Hours 04/29/16 Discontinued Furosemide 40 Mg Tablet, 40 Mg Oral Daily Discontinued Furosemide 20 Mg Tablet, 20 Mg Oral Daily Discontinued Lisinopril 10 Mg Tablet, 20 Mg Oral Daily Discontinued Lisinopril 10 Mg Tablet, 5 Mg Oral Twice A Day 04/29/16 Discontinued Lisinopril 10 Mg Tablet, 20 Mg Oral Daily Discontinued Lisinopril 10 Mg Tablet, 10 Mg Oral Daily Discontinued Lisinopril (Prinavil / Zestril) 20 Mg Tablet, 20 Mg Oral Daily Discontinued Potassium Chloride 20 Meq Tab.er.prt, 20 Meq Oral Three Times A Day 04/29/16 Discontinued Prednisone 20 Mg Tab, 30 Mg Oral Twice A Day 10/08/16 Discontinued Prednisone 20 Mg Tab, 20 Mg Oral Daily Discontinued Tiotropium [place] (Spiriva) 18 Mcg Cap.w.dev, 18 Mcg Inhalation Daily Discontinued Social History Social History Problem Response Recorded Date/Time Onset Date Status Hx Psychiatric Problems No 10/30/2017 9:20am Not Applicable Not Applicable Hx Eating Disorder No 10/30/2017 9:20am Not Applicable Not Applicable Hx Substance Use Disorder No 10/30/2017 9:20am Not Applicable Not Applicable Hx Depression No 10/30/2017 9:20am Not Applicable Not Applicable Hx Alcohol Use No 10/30/2017 9:20am Not Applicable Not Applicable Hx Substance Use Treatment No 10/30/2017 9:20am Not Applicable Not Applicable Hx Physical Abuse No 10/30/2017 9:20am Not Applicable Not Applicable Hospital Discharge Instructions No hospital discharge instruction information available. Plan of Care Discharge Date 11/03/17 2:09pm Disposition HOME, SELF-CARE Instructions/Education Provided Pneumonia - Bacterial Prescriptions See Medication Section Additional Instructions/Education f/u with [facility] Functional Status Query Response Date Recorded Assistive Devices None October 30, 2017 8:30am Ambulation Ability Independent October 30, 2017 8:30am Toileting Ability Standby Assistance November 02, 2017 7:00pm Allergies, Adverse Reactions, Alerts Allergen Type Severity Reaction Status Last Updated iodine Allergy Severe ANAPHYLAXIS Active 05/11/15 Iodinated Contrast- Oral and IV Dye Allergy Severe Active 10/30/17 Morphine Allergy Intermediate Active 10/30/17 Immunizations No immunization information available. Vital Signs Acute Vital Signs Vital Response Date/Time Temperature (Fahrenheit) 95.6 degrees F (97.6 - 99.5) 11/03/2017 12:14pm Pulse Pulse Rate (adult) 87 bpm (60 - 90) 11/03/2017 12:14pm Respiratory Rate 19 bpm (12 - 24) 11/03/2017 12:14pm Blood Pressure 110/66 mm Hg 11/03/2017 12:14pm Height 5 ft 3 in 10/30/2017 9:20am Weight 110.06 lb 11/02/2017 8:45am Body Mass Index 19.5 kg/m^2 11/02/2017 9:26am Results Laboratory Results Test Name Result Units Flags Reference Collection Date/Time Result Date/ Time Comments Prothrombin Time 12.8 seconds 11.9-14.5 01/21/2017 12:45pm 01/21/2017 1 :17pm Prothromb Time International Ratio 0.92 01/21/2017 12:45pm 2016 1:17pm Oral Anticoagulant Therapy INR Values: 1. Low Intensity Therapy 1.5 - 2.0 2. Moderate Intensity Therapy 2.0 - 3.0 3. High Intensity Therapy(1) 2.5 - 3.5 4. High Intensity Therapy(2) 3.0 - 4.0 5. Panic Value INR > 5.0 Activated Partial Thromboplast Time 29.9 seconds 23.8-35.5 01/21/2017 12 :45pm 01/21/2017 1:19pm White Blood Count 11.90 x10e3/uL H 4.8-10.8 11/02/2017 5:35am 2017 5:44am Red Blood Count 4.52 x10e6/uL 3.6-5.1 11/02/2017 5:35am 11/02/2017 5: 44am Hemoglobin 14.1 g/dL 12.0-16.0 11/02/2017 5:35am 11/02/2017 5:44am Hematocrit 42.1 % 34.2-44.1 11/02/2017 5:35am 11/02/2017 5:44am Mean Corpuscular Volume 93.1 fL 81-99 11/02/2017 5:35am 11/02/2017 5: 44am Mean Corpuscular Hemoglobin 31.2 pg 28-32 11/02/2017 5:35am 11/02/2017 5:44am Mean Corpuscular Hemoglobin Concent 33.5 g/dL 31-35 11/02/2017 5:35am 11/02/2017 5:44am Red Cell Distribution Width 14.6 % H 11.7-14.4 11/02/2017 5:35am 2017 5:44am Platelet Count 210 x10e3/uL 140-360 11/02/2017 5:35am 11/02/2017 5: 44am Neutrophils (%) (Auto) 86.9 % H 38.7-80.0 11/02/2017 5:35am 11/02/2017 5 :44am Lymphocytes (%) (Auto) 8.1 % L 18.0-39.1 11/02/2017 5:35am 11/02/2017 5: 44am Monocytes (%) (Auto) 4.6 % 4.4-11.3 11/02/2017 5:35am 11/02/2017 5: 44am Eosinophils (%) (Auto) 0.0 % 0.0-6.0 11/02/2017 5:35am 11/02/2017 5: 44am Basophils (%) (Auto) 0.1 % 0.0-1.0 11/02/2017 5:35am 11/02/2017 5:44am IM GRANULOCYTES % 0.3 % 0.0-1.0 11/02/2017 5:35am 11/02/2017 5:44am Neutrophils # (Auto) 10.4 H 2.1-6.9 11/02/2017 5:35am 11/02/2017 5: 44am Lymphocytes # (Auto) 1.0 1.0-3.2 11/02/2017 5:35am 11/02/2017 5:44am Monocytes # (Auto) 0.6 0.2-0.8 11/02/2017 5:35am 11/02/2017 5:44am Eosinophils # (Auto) 0.0 0.0-0.4 11/02/2017 5:35am 11/02/2017 5:44am Basophils # (Auto) 0.0 0.0-0.1 11/02/2017 5:35am 11/02/2017 5:44am Absolute Immature Granulocyte (auto 0.03 x10e3/uL 0-0.1 11/02/2017 5: 35am 11/02/2017 5:44am Differential Total Cells Counted 100 10/30/2017 6:10am 10/30/2017 8 :19am Neutrophils % (Manual) 47 % 40-74 10/30/2017 6:10am 10/30/2017 8:19am Lymphocytes % (Manual) 50 % H 19-48 10/30/2017 6:10am 10/30/2017 8:19am Monocytes % (Manual) 3 % L 3.4-9.0 10/30/2017 6:10am 10/30/2017 8:19am Platelet Estimate ADEQUATE 10/30/2017 6:10am 10/30/2017 8:19am Platelet Morphology Comment NORMAL 10/30/2017 6:10am 10/30/2017 8: 19am Anisocytosis SLIGHT 10/30/2017 6:10am 10/30/2017 8:19am Red Cell Morphology Comment NORMAL 10/30/2017 6:10am 10/30/2017 8: 19am Urine Color YELLOW YELLOW 10/30/2017 6:20am 10/30/2017 6:59am Urine Clarity CLEAR CLEAR 10/30/2017 6:20am 10/30/2017 6:59am Urine Specific [place] 1.020 1.010-1.025 10/30/2017 6:20am 2017 6:59am Urine pH 7 5 - 7 10/30/2017 6:20am 10/30/2017 6:59am Urine Leukocyte Esterase NEGATIVE NEGATIVE 10/30/2017 6:20am 2017 6:59am Urine Nitrite NEGATIVE NEGATIVE 10/30/2017 6:20am 10/30/2017 6:59am Urine Protein TRACE H NEGATIVE 10/30/2017 6:20am 10/30/2017 6:59am Urine Glucose (UA) NEGATIVE NEGATIVE 10/30/2017 6:20am 10/30/2017 6: 59am Urine Ketones NEGATIVE NEGATIVE 10/30/2017 6:2010/30/2017 6:59am Urine Urobilinogen 0.2 mg/dL 0.2 - 1 10/30/2017 6:20am 10/30/2017 6: 59am Urine Bilirubin NEGATIVE NEGATIVE 10/30/2017 6:20am 10/30/2017 6: 59am Urine Blood NEGATIVE NEGATIVE 10/30/2017 6:20am 10/30/2017 6:59am Urine WBC 0-5 /HPF 0-5 10/30/2017 6:20am 10/30/2017 6:59am Urine RBC 6-10 /HPF H 0-5 10/30/2017 6:20am 10/30/2017 6:59am Urine Bacteria NONE /HPF NONE 10/30/2017 6:20am 10/30/2017 6:59am Urine Epithelial Cells RARE /LPF NONE 10/30/2017 6:20am 10/30/2017 6: 59am Urine Transitional Epithelial Cells RARE H NONE 10/30/2017 6:20am 6:59am Sodium Level 141 mmol/L 136-145 11/02/2017 5:35am 11/02/2017 6:23am Potassium Level 3.9 mmol/L 3.5-5.1 11/02/2017 5:35am 11/02/2017 6:23am Chloride Level 102 mmol/L 98-107 11/02/2017 5:35am 11/02/2017 6:23am Carbon Dioxide Level 27 mmol/L 22-29 11/02/2017 5:35am 11/02/2017 6: 23am Anion Gap 15.9 mmol/L 8-16 11/02/2017 5:35am 11/02/2017 6:23am Blood Urea Nitrogen 30 mg/dL H 7-11/02/2017 5:35am 11/02/2017 6:23am Creatinine 0.82 mg/dL 0.57-1.11 11/02/2017 5:35am 11/02/2017 6:23am BUN/Creatinine Ratio 37 H 6-11/02/2017 5:35am 11/02/2017 6:23am Estimat Glomerular Filtration Rate > 60 ML/MIN 60- 11/02/2017 5:35am 6:23am Ranges were taken from the National Kidney Disease Education Program and the National Kidney Foundation literature. Reference ranges: 60 or greater: Normal 16-59 (for 3 consecutive months): Chronic kidney disease 15 or less: Kidney failure Glucose Level 217 mg/dL H 74-118 11/02/2017 5:35am 11/02/2017 6:23am Calcium Level 9.2 mg/dL 8.4-10.2 11/02/2017 5:35am 11/02/2017 6:23am Bedside Glucose 148 mg/dL H 70-120 11/03/2017 11:02am 11/03/2017 11: 30am Meter ID: [id number] Lactic Acid Level 30.2 MG/DL H 4.5-19.8 10/30/2017 6:10am 10/30/2017 6: 48am Magnesium Level 2.1 MG/DL 1.3-2.1 10/31/2017 5:40am 10/31/2017 6:38am Total Bilirubin 0.8 mg/dL 0.2-1.2 11/02/2017 5:35am 11/02/2017 6:23am Aspartate Amino Transf (AST/SGOT) 29 IU/L 5-34 11/02/2017 5:35am 2017 6:23am Alanine Aminotransferase (ALT/SGPT) 81 IU/L H 0-55 11/02/2017 5:35am 6:23am Total Protein 6.9 g/dL 6.5-8.1 11/02/2017 5:35am 11/02/2017 6:23am Albumin 3.6 g/dL 3.5-5.0 11/02/2017 5:35am 11/02/2017 6:23am Globulin 3.3 g/dL 2.3-3.5 11/02/2017 5:3511/02/2017 6:23am Albumin/Globulin Ratio 1.1 0.8-2.0 11/02/2017 5:3511/02/2017 6: 23am Alkaline Phosphatase 104 IU/L 40-150 11/02/2017 5:35am 11/02/2017 6: 23am B-Type Natriuretic Peptide 1623.3 pg/mL H 0-100 10/31/2017 5:40am 2017 6:35am Creatine Kinase 70 IU/L 29-168 10/30/2017 10:20pm 10/30/2017 10:54pm Creatine Kinase MB 2.50 ng/mL 0-5.0 10/30/2017 10:20pm 10/30/2017 11: 00pm Troponin I 0.367 ng/mL H 0-0.300 10/30/2017 10:20pm 10/30/2017 11:00pm Thyroid Stimulating Hormone (TSH) 1.589 uIU/mL 0.350-4.940 10/31/2017 5: 40am 10/31/2017 8:25am Arterial Blood pH 7.43 H 7.31-7.41 11/01/2017 10:10am 11/01/2017 11: 49am Arterial Blood Partial Pressure CO2 43 mmHg 41-51 11/01/2017 10:10am 11:49am Arterial Blood Partial Pressure O2 120 mmHg H 80-105 11/01/2017 10:10am 11/01/2017 11:49am Arterial Blood HCO3 29 mmol/L H 23-28 11/01/2017 10:10am 11/01/2017 11: 49am Arterial Blood Base Excess 5.0 mmol/L H -2 - 3 11/01/2017 10:10am 2017 11:49am Arterial Blood Oxygen Saturation 99.0 % H 95-98 11/01/2017 10:10am 11/01 11:49am FiO2 40 % 11/01/2017 10:10am 11/01/2017 11:49am VENT SETTINGS: PS 10 / PEEP 3 , RIGHT RADIAL Microbiology Results Procedure Source Organism/Result Collection Date/Time Result Date/Time Result Status Blood Culture Blood NO GROWTH AFTER 72 HOURS 6:10am 11/02/2017 6:25am Preliminary Sputum Culture Sputum, Induced PSEUDOMONAS AERUGINOSA 10/30/2017 2:30pm 8:22am Final Procedures Procedure Status Date Provider(s) X-ray of chest, two views Active 01/21/17 SALOME WANG MD Encounters Encounter Location Arrival/Admit Date Discharge/Depart Date Attending Provider Discharged Inpatient [facility] 10/30/17 7:13am 11/03/17 2:09pm ANA JENSEN MD Discharged Inpatient [facility] 01/21/17 2:42pm 01/24/17 2:45pm ANA JENSEN MD
[2017-11-25 06:49] LABS: ABG HCO3 19 mmol/L (23-28); ABG PCO2 51 mmHg (41-51); ABG PH 7.18 (7.31-7.41); ABG PO2 74 mmHg (80-105)
--- NOTE | 2017-11-25 06:49 | Diagnostic Imaging Report ---
CHEST SINGLE (PORTABLE), 11/25/2017 6:29 AM Technique: CHEST SINGLE (PORTABLE) Comparison: 11/02/2017, 10/31/2017 Clinical history: \S\RESP DISTRESS, INTUBATED BY EMS Findings: See Impression. Possible underlying emphysema. Stable calcified left lung granuloma. Impression: 1. Lines/Tubes: ET tube approximately 3 cm above the expected pepe. 2. Stable cardiomediastinal silhouette with tortuous and/or ectatic thoracic aorta. 3. Stable elevated left hemidiaphragm. No consolidation. 4. No effusion or pneumothorax. Signed by: Dr Maritza Wagoner MD on 11/25/2017 6:46 AM
[2017-11-25 06:50] LABS: BASOPHILS % 0.1 % (0.0-1.0); EOSINOPHILS # (AUTO) 0.2 (0.0-0.4); EOSINOPHILS % 2.3 % (0.0-6.0); HEMATOCRIT 40.3 % (34.2-44.1); LYMPHOCYTES # (AUTO) 3.1 (1.0-3.2); LYMPHOCYTES % 42.3 % (18.0-39.1); MEAN CORPUSCULAR HEMOGLOBIN 31.4 pg (28-32); MEAN CORPUSCULAR HGB CONC 31.8 g/dL (31-35); MONOCYTES # (AUTO) 0.5 (0.2-0.8); MONOCYTES % 6.2 % (4.4-11.3); NEUTROPHILS # (AUTO) 3.6 (2.1-6.9); NEUTROPHILS % 48.6 % (38.7-80.0); PLATELET COUNT 181 x10e3/uL (140-360); RED BLOOD COUNT 4.07 x10e6/uL (3.6-5.1); RED CELL DISTRIBUTION WIDTH 15.4 % (11.7-14.4)
[2017-11-25] MEDS ORDERED: VECURONIUM BROMIDE FOR INJ 20 MG VIAL IV STA (06:52)
[2017-11-25 06:54] LABS: HEMOGLOBIN 12.8 g/dL (12.0-16.0)
[2017-11-25] MEDS ORDERED: DEXMEDETOMIDINE HCL 200 MCG in SODIUM CHLORIDE 0.9% 50ML 48 ML IV PRN (07:00)
[2017-11-25 07:02] LABS: ALBUMIN 2.9 g/dL (3.5-5.0); ALBUMIN/GLOBULIN RATIO 1.2 (0.8-2.0); ANION GAP 20.5 mmol/L (8-16); CALCIUM 8.8 mg/dL (8.4-10.2); CREATININE, SERUM 1.03 mg/dL (0.57-1.11); POTASSIUM 4.5 mmol/L (3.5-5.1)
[2017-11-25 07:03] LABS: CREATINE KINASE MB 1.6 ng/mL (0-5.0)
[2017-11-25 07:10] LABS: INR 1.19; PROTHROMBIN TIME 14.2 seconds (11.9-14.5)
[2017-11-25 07:11] LABS: PARTIAL THROMBOPLASTIN TIME 29.1 seconds (23.8-35.5)
[2017-11-25] MEDS: SODIUM CHLORIDE 0.9% IV SCH ×3 (07:25→09:20)
[2017-11-25] MEDS: DEXMEDETOMIDINE HCL IV SCH ×3 (07:25→09:20)
[2017-11-25] MEDS ORDERED: FENTANYL CITRATE/PF 100MCG/2 ML INJ IV PRN (07:45)
[2017-11-25] MEDS ORDERED: IPRATROPIUM BROMIDE 0.02% 2.5 ML NEB NEB PRN (08:00)
[2017-11-25] MEDS ORDERED: ALBUTEROL SULF 0.083% NEB SOLN 3 ML NEB NEB PRN (08:00)
[2017-11-25] MEDS ORDERED: MIDAZOLAM HCL 2 MG/2 ML VIAL ONE (08:48)
[2017-11-25] MEDS ORDERED: MIDAZOLAM HCL 2 MG/2 ML VIAL IV STA (08:50)
[2017-11-25] MEDS ORDERED: MIDAZOLAM HCL 2 MG/2 ML VIAL IV PRN (09:45)
--- NOTE | 2017-11-25 10:36 | History and Physical ---
PRIMARY CARE PROVIDER: Unknown. CHIEF COMPLAINT: Acute respiratory failure requiring intubation. HISTORY OF PRESENT ILLNESS: Ms. Porras is a 72-year-old lady who has end-stage systolic heart failure with an ejection fraction of 10% to 15%, also with COPD. She was sent home on hospice recently due to pneumonia with sepsis and end-stage heart failure. The patient was having difficulty breathing early this morning. Her daughter was trying to give her a breathing treatment and called the hospice team at the same time. She had to leave a voice mail. She got panicky and called . EMS arrived. Her cbe-js-xujfgoao DNR did not have her name on it, so they proceeded with ACLS, intubated the patient, and transported her to the emergency room. The patient had no loss of spontaneous circulation or respiration, but she was unresponsive and in marked respiratory distress at the time the EMS arrived. REVIEW OF SYSTEMS: Unobtainable as the patient is intubated. PAST MEDICAL HISTORY: Significant for longstanding hypertension, coronary artery disease, chronic systolic heart failure with ejection fraction of 10% to 15%, COPD and chronic kidney disease. She also has history of aortic aneurysm. She also has a history of cholecystectomy as well as the abdominal aortic aneurysm repair. She denies history of diabetes. MEDICATIONS: Her current medications include nebulized DuoNeb treatments regularly, Protonix 40 mg daily, Lasix 40 mg twice daily, losartan 12.5 mg daily and potassium 20 mEq daily. ALLERGIES: SHE HAS A STATED ALLERGY TO IV DYE CONTRAST, MORPHINE AND IODINE. FAMILY HISTORY: Significant for hypertension. SOCIAL HISTORY: The patient is . Yoruba is her primary language. She had continued to smoke. Drinks rarely. Does not use illegal drugs and had been generally independent prior to her recent discharge on hospice, where she has required quite a bit of assistance with even ADLs. PHYSICAL EXAMINATION PSYCHIATRIC: Unobtainable as the patient is intubated. GENERAL: She has a normal body habitus, although somewhat underweight. Mildly cachectic. VITALS: Blood pressure initially 89/57, now 107/73. Heart rate initially 104, currently 106. Respiratory rate 16 on the ventilator with O2 sat of 100%. Temperature 96.7. HEENT: Her head is atraumatic. Eyes are anicteric. She is orally intubated. Ears and nares are without erythema or discharge. NECK: Supple. No mass or thyromegaly. LYMPHATIC SYSTEM: She has no palpable cervical, axillary or inguinal adenopathy. CARDIOVASCULAR SYSTEM: Her heart has a regular rate and rhythm without murmur or extra heart sound. She has no peripheral edema. She has no carotid bruit. RESPIRATORY: Lungs are clear to auscultation and percussion. She is being ventilated on assist control. GASTROINTESTINAL: Abdomen is soft without organomegaly, masses or tenderness. Normal bowel sounds present. CUTANEOUS: Her skin is warm and dry to touch with no rash or skin breakdown. MUSCULOSKELETAL: Joints are in normal alignment without erythema or swelling. She has no calf tenderness. NEUROLOGIC: Exam is nonfocal. She is moving all extremities. She is mildly sedated but is moving all extremities equally. DIAGNOSTIC STUDIES: Chest x-ray shows cardiomegaly and ectatic aorta but otherwise clear lung rios and evidence of emphysema. Her CBC shows a white count of 7.43 with a normal differential, hemoglobin 12.8, hematocrit 40.3, platelet count 181,000. Her blood gas initially pH 7.18, pCO2 51, pO2 74. Her initial chemistry shows normal electrolytes. CO2 is 18. Creatinine 1.03 and BUN 12 for a GFR of 52. Glucose 288. BNP is 1,178.2. Troponin 0.011. Transaminases, bilirubin and alk phos are all normal. Coags are normal. IMPRESSION AND PLAN 1. Acute respiratory failure. Patient intubated and admitted to the ICU with pulmonary consult. 2. Ecclv-sx-zgqqjck systolic heart failure. IV Lasix. 3. Acute exacerbation of chronic obstructive pulmonary disease. O2, aggressive nebs, IV Solu-Medrol. 4. Hypertension complicated by coronary artery disease, congestive heart failure and chronic kidney disease, stage 3. Will monitor for now as the patient is a little bit hypotensive. 5. The patient has a do not resuscitate status and was on hospice. Family is likely to want to withdraw care when the rest of the family arrives in a couple of hours. For prophylaxis, the patient will be on IV Pepcid. In the meantime, will provide comfort measures only. Note: Sixty minutes of critical care time spent on this history and physical. Job#: [id number]
--- NOTE | 2017-11-25 15:20 | Consultation ---
DATE OF CONSULTATION: November 25, 2017 PULMONARY/CRITICAL CARE CONSULTATION REFERRING PHYSICIAN: Dr. Anthony CHIEF COMPLAINT: Dyspnea and respiratory failure. HISTORY OF PRESENT ILLNESS: The patient is a 72-year-old woman. She was recently hospitalized at [facility] with respiratory failure, severe cardiomyopathy and congestive heart failure. Her ejection fraction at that time was 10% to 15%. The patient was diuresed and eventually extubated. The family opted for hospice. Apparently last night the niece noticed the patient was not breathing well and called EMS. The [id number] DNR was not in order, and the EMS squad intubated the patient. She has subsequently been extubated. PAST MEDICAL HISTORY 1. Severe systolic cardiomyopathy. 2. COPD. FAMILY HISTORY: Noncontributory. SOCIAL HISTORY: The patient is here with her family. She is not a smoker or drinker. She did smoke previously. REVIEW OF SYSTEMS: There is no fever. There is no headache. She does not complain of chest pain. There was difficulty breathing. There was no abdominal pain, nausea or vomiting. There was no leg edema or swelling. PHYSICAL EXAMINATION GENERAL: The patient is now extubated. She is on high-flow nasal cannula. VITALS: Saturation is 98%. Her blood pressure is 70s to 80s systolic over 50s to 60s diastolic. HEENT: No facial swelling or erythema. Nasal mucosa is normal. The oropharynx is normal. LYMPHATIC: No submandibular, cervical or supraclavicular adenopathy. CARDIAC: Regular rate and rhythm with normal S1 and S2. There are no murmurs or rubs. LUNGS: Auscultation of the lungs reveals crackles at both lung rios. There is no wheezing. ABDOMEN: Soft and nontender. There is no rebound or guarding. EXTREMITIES: Show 1 to 2+ leg edema. IMPRESSION 1. Ischemic cardiomyopathy. 2. Kfbpp-yn-gzxmabn systolic congestive heart failure. 3. Chronic obstructive pulmonary disease. PLAN 1. Family will reinitiate hospice. 2. Restart home regimen. 3. Overall prognosis is poor. Job#: [id number]
[2017-11-25 16:59] VITALS: BP 86/46
== END 2017-11-25 18:33 | disposition hospice, home (50) | DRG 291 ==
LOC: ER 06:09 → ERHOLD 07:52 → UNDOADMIN 07:57
PROVIDERS: ADMIT Internal Medicine; ATTEND Internal Medicine
PROC: 5A1935Z Respiratory Ventilation, Less than 24 Consecutive Hours (ICD-10-PCS; principal; 2017-11-25)
DX: I13.0 Hypertensive heart and chronic kidney disease with heart failure and stage 1 through stage 4 chronic kidney disease, or unspecified chronic kidney disease (principal); I50.23 Acute on chronic systolic (congestive) heart failure; J96.00 Acute respiratory failure, unspecified whether with hypoxia or hypercapnia; J96.11 Chronic respiratory failure with hypoxia; J96.12 Chronic respiratory failure with hypercapnia; J44.1 Chronic obstructive pulmonary disease with (acute) exacerbation; R56.9 Unspecified convulsions; N18.3 Chronic kidney disease, stage 3 (moderate); I25.10 Atherosclerotic heart disease of native coronary artery without angina pectoris
CPT/HCPCS: 36415; 71045; 80053; 82550; 82553; 82805; 83605; 83735; 83880; 84484; 85025; 85610; 85730; 87040; 93005; 94002; 99285; J2250